=== PATIENT | female | born 1960 | race Caucasian/White ===

== ENCOUNTER 2017-06-01 14:19 | Emergency (ER) | payer MEDICAID, OTHER ==
[~2017-06-01] VITALS: Ht 152.4 cm; Wt 112.0 kg
[~2017-06-01 14:19] MED LIST: AMOLODIPINE PO; LEVO25TA PO; METF500T4 PO; QUIN20TA30 PO; SIMV10TA2 PO
[2017-06-01 14:37] VITALS: BP 157/100
== END 2017-06-01 21:54 | disposition left against medical advice (07) ==
LOC: ER 14:45
DX: R07.9 Chest pain, unspecified (principal); Z53.21 Procedure and treatment not carried out due to patient leaving prior to being seen by health care provider

== ENCOUNTER 2019-02-12 15:38 | Emergency (ER) | payer OTHER ==
[~2019-02-12] VITALS: Ht 149.9 cm; Wt 108.0 kg
[~2019-02-12 15:38] MED LIST changes: +METF-414 PO; -METF500T4 PO
[2019-02-12] MEDS ORDERED: KETOROLAC 30MG/ML VIAL IV STA (19:42)
[2019-02-12] MEDS ORDERED: LIDOCAINE 5% PATCH TOP SCH (19:45)
[2019-02-12 20:52] LABS: BASOPHILS % 0.6 % (0.0-2.0); EOSINOPHILS % 3.2 % (0.0-5.0); HEMATOCRIT. 40.9 % (36.0-48.0); HEMOGLOBIN. 13.9 g/dL (12.0-16.0); MEAN CORPUSCULAR HEMOGLOBIN 29.8 pg (28.0-32.0); MEAN CORPUSCULAR VOLUME 87.6 fL (81.0-99.0); MEAN PLATELET VOLUME 8.1 fl (7.4-10.4); MONOCYTES % 5.6 % (2.0-8.0); NEUTROPHILS % 58.6 % (40.0-76.0); PLATELET 308 x1000/uL (130-400); RED BLOOD CELL COUNT 4.68 mill/uL (4.2-5.4); RED CELL DISTRIBUTION WIDTH 14.1 % (11.6-14.6)
[2019-02-12 20:57] LABS: CHLORIDE 103 mEq/L (98-107)
[2019-02-13 00:14] LABS: CLARITY URINE CLEAR (CLEAR); COLOR URINE YELLOW (YELLOW); KETONES URINE NEGATIVE (NEGATIVE); LEUKOCYTE ESTERASE URINE NEGATIVE (NEGATIVE); NITRITE URINE NEGATIVE (NEGATIVE); OCCULT BLOOD URINE 1+ (NEGATIVE); PROTEIN URINE NEGATIVE (NEGATIVE); SPECIFIC GRAVITY URINE 1.013 (1.005-1.030); UROBILINOGEN URINE 0.2 E.U./dL (0.2-1.0)
[2019-02-13 01:43] VITALS: BP 118/65
== END 2019-02-13 02:02 | disposition home or self-care (01) ==
LOC: ER 15:38
DX: N20.0 Calculus of kidney (principal); I10 Essential (primary) hypertension
CPT/HCPCS: 36415; 74176; 80053; 81003; 85025; 96374; 99284; C1893; J1885; Z7610

== ENCOUNTER 2020-09-14 14:51 | Emergency (ER) | payer MEDICAID, OTHER ==
[~2020-09-14] VITALS: Ht 162.6 cm; Wt 85.0 kg
[2020-09-14] MEDS ORDERED: AMOXICILLIN/POTASSIUM CLAVULANATE 875/125MG TAB PO ONE (15:15)
[2020-09-14] MEDS ORDERED: ACETAMINOPHEN 325MG TABLET PO ONE (15:15)
[2020-09-14] MEDS ORDERED: AMOX-424 MT (15:20)
[2020-09-14] MEDS ORDERED: ACET-2708 MT (15:21)
[2020-09-14 15:27] VITALS: BP 157/80
[2020-09-14] MEDS ORDERED: TETANUS, DIPHTHERIA, PERTUSSIS VAC/PF 0.5ML (>7YR OLD) IM ONE (16:00)
== END 2020-09-14 15:33 | disposition home or self-care (01) ==
LOC: ER 14:51
DX: S91.152A Open bite of left great toe without damage to nail, initial encounter (principal); W54.0XXA Bitten by dog, initial encounter; Y93.89 Activity, other specified; Y92.89 Other specified places as the place of occurrence of the external cause; Z23 Encounter for immunization; E11.9 Type 2 diabetes mellitus without complications; I10 Essential (primary) hypertension; E05.90 Thyrotoxicosis, unspecified without thyrotoxic crisis or storm; Z79.899 Other long term (current) drug therapy; Z79.84 Long term (current) use of oral hypoglycemic drugs
CPT/HCPCS: 90471; 90715; 99283

== ENCOUNTER 2021-08-19 15:35 | Emergency (ER) | payer MEDICAID, OTHER ==
[~2021-08-19] VITALS: Ht 152.4 cm; Wt 73.0 kg
[~2021-08-19 15:35] MED LIST changes: +ACET-2708 MT; +AMOX-424 MT
[2021-08-19 15:44] VITALS: BP 149/85
[2021-08-19 20:24] LABS: CHLORIDE 106 mEq/L (98-107)
[2021-08-19 21:11] LABS: BASOPHILS % 0.6 % (0.0-2.0); HEMATOCRIT. 41.5 % (36.0-48.0); HEMOGLOBIN. 14.2 g/dL (12.0-16.0); MEAN CORPUSCULAR VOLUME 87.7 fL (81.0-99.0); MEAN PLATELET VOLUME 7.7 fl (7.4-10.4); MONOCYTES % 8.8 % (2.0-8.0); NEUTROPHILS % 50.6 % (40.0-76.0); PLATELET 271 x1000/uL (130-400); RED BLOOD CELL COUNT 4.74 mill/uL (4.2-5.4); RED CELL DISTRIBUTION WIDTH 14.5 % (11.6-14.6)
== END 2021-08-19 22:49 | disposition home or self-care (01) ==
LOC: ER 15:35
DX: R07.89 Other chest pain (principal); E78.00 Pure hypercholesterolemia, unspecified; I10 Essential (primary) hypertension; E11.9 Type 2 diabetes mellitus without complications; Z98.890 Other specified postprocedural states; Z86.39 Personal history of other endocrine, nutritional and metabolic disease
CPT/HCPCS: 36415; 71045; 80053; 83880; 84484; 85025; 93005; 99285

== ENCOUNTER 2024-01-03 09:39 | Emergency (ER) | payer MEDICAID, OTHER ==
[~2024-01-03] VITALS: Ht 160 cm; Wt 91.0 kg
[~2024-01-03 09:39] MED LIST changes: -QUIN20TA30 PO; +QUIN20TA39 PO; +SIMV-341 PO; -SIMV10TA2 PO
[2024-01-03 09:53] VITALS: O2SAT 97
[2024-01-03] MEDS: KETOROLAC 15MG/ML VIAL IM ONE (11:29)
[2024-01-03] MEDS ORDERED: NAPR-1176 MT (11:36)
[2024-01-03] MEDS ORDERED: LIDO700A15 TP (11:36)
[2024-01-03 11:47] VITALS: BP 134/67; PULSE 85; RESP 18; TEMP 98.2
== END 2024-01-03 11:55 | disposition home or self-care (01) ==
LOC: ER 09:39
DX: S60.011A Contusion of right thumb without damage to nail, initial encounter (principal); M54.9 Dorsalgia, unspecified; E11.9 Type 2 diabetes mellitus without complications; E78.00 Pure hypercholesterolemia, unspecified; E03.9 Hypothyroidism, unspecified; I10 Essential (primary) hypertension; Z98.890 Other specified postprocedural states; V98.8XXA Other specified transport accidents, initial encounter; Y93.89 Activity, other specified; Y92.89 Other specified places as the place of occurrence of the external cause; Y99.8 Other external cause status
CPT/HCPCS: 99283; 73140; 96372; J1885

== ENCOUNTER 2024-11-10 16:10 | Emergency (ER) | payer OTHER ==
[~2024-11-10] VITALS: Ht 152.4 cm; Wt 87.0 kg
[~2024-11-10 16:10] MED LIST changes: +LEVO750T68 MT; +LIDO-53 TP; +NAPR-1176 MT
[2024-11-10 16:39] VITALS: O2SAT 99
[2024-11-10 17:48] VITALS: BP 145/67; PULSE 90; RESP 19; TEMP 36.9; O2SAT 99
[2024-11-10] MEDS: BACITRACIN ZINC OINT UDPKT TOP ONE (17:50)
[2024-11-10] MEDS ORDERED: BO1 TP (18:08)
== END 2024-11-10 18:16 | disposition home or self-care (01) ==
LOC: ER 16:10
DX: T24.212A Burn of second degree of left thigh, initial encounter (principal); T31.0 Burns involving less than 10% of body surface; E11.9 Type 2 diabetes mellitus without complications; E78.00 Pure hypercholesterolemia, unspecified; I10 Essential (primary) hypertension; Z79.899 Other long term (current) drug therapy; Z98.890 Other specified postprocedural states; X58.XXXA Exposure to other specified factors, initial encounter; Y93.89 Activity, other specified; Y92.89 Other specified places as the place of occurrence of the external cause; Y99.8 Other external cause status
CPT/HCPCS: 16020; 99282